=== PATIENT | female | born 1980 ===

== ENCOUNTER → 2017-05-23 | Outpatient (CLI) | payer OTHER ==
[~2017-05-23] MED LIST: CETI-176 PO; CHOL200025 PO; IPRA0.2S8 IH; MULT1TAB64 PO; NORG1TAB98 PO
--- NOTE | 2017-05-23 12:53 | RADIOLOGY IMAGING REPORT ---
FACILITY: [facility] - [place] PATIENT NAME: Rosalia Horn : 1980 MR: [id number] V: [id number] EXAM DATE: ORDERING PHYSICIAN: MAYRA WILKES TECHNOLOGIST: Location: [facility] [place] Patient: Rosalia Horn : 1980 Visit/Account:[id number] Date of Sevice: 05/23/2017 EXAMINATION: CT sinus without IV contrast HISTORY: Acute sinusitis. COMPARISON: CT sinuses from 05/28/2016. TECHNIQUE: Contiguous axial images were obtained through the paranasal sinuses without intravenous c ontrast administration. Coronal and sagittal reformatted images were obtained from the axial source d sal. One of the following dose optimization techniques was utilized in the performance of this exam: Autom ated exposure control; adjustment of the mA and/or kV according to the patient's size; or use of an i terative reconstruction technique. Specific details can be referenced in the facility's radiology C T exam operational policy. FINDINGS: Maxillary sinuses: Mild mucosal thickening in both maxillary sinuses with small air-fluid levels, lef t greater than right. The maxillary infundibula are clear. Frontal sinuses: The frontal sinuses are hypoplastic, particularly the right. No mucosal thickening. Ethmoid air cells: Minimal mucosal thickening in the bilateral ethmoid air cells. Sphenoid sinuses: The right sphenoid sinus is larger than the left, which is a normal variant. Mild m ucosal thickening in the left sphenoid sinus. Ostiomeatal units: Patent. Nasal septum/nasal cavity: Nasal septal deviation to the right causing mild narrowing of the right na syed cavity. Orbits: Negative. Visualized intracranial contents/soft tissues: Negative. TMJs: Negative. IMPRESSION: 1. Mild nonobstructive inflammation of the bilateral maxillary sinuses, ethmoid air cells and left sp henoid sinus. Air-fluid levels in the bilateral maxillary sinuses could indicate acute sinusitis. 2. Nasal septal deviation to the right with mild narrowing of the right nasal cavity. Report Dictated By: Betsy Graham MD at 05/23/2017 12:23 PM Report E-Signed By: Betsy Graham MD at 05/23/2017 12:49 PM WSN:[email or web address]
== END ==
LOC: CT 03:25
PROVIDERS: ATTEND Family Medicine
DX: J34.2 Deviated nasal septum (principal); J01.90 Acute sinusitis, unspecified
CPT/HCPCS: 70486

== ENCOUNTER → 2017-05-29 | Outpatient (CLI) | payer OTHER ==
[~2017-05-29] MED LIST changes: +METH4TAB66 PO
--- NOTE | 2017-05-29 13:35 | RADIOLOGY IMAGING REPORT ---
FAC[place] [facility] [place]IENT NAME: Rosalia Horn : 1980 MR: [id number] V: [id number] EXAM DATE: ORDERING PHYSICIAN: HAYLEY DICKSON TECHNOLOGIST: Location: [facility] Patient: Rosalia Horn : 1980 Visit/Account:[id number] Date of Sevice: 05/29/2017 Exam type: CHEST PA AND LAT History: Chronic cough, congestion Comparison: December 29, 2014. Findings: The lungs are free of acute effusions, infiltrates or edema. No evidence of a pneumothorax or pneumo mediastinum. The cardiac silhouette is normal in size. The trachea is in midline. IMPRESSION: 1. No acute cardiopulmonary process is seen Report Dictated By: Nohelia Rizo MD at 05/29/2017 1:31 PM Report E-Signed By: Nohelia Rizo MD at 05/29/2017 1:32 PM WSN:[id number]
== END ==
LOC: RAD 11:04
PROVIDERS: ATTEND Otolaryngology
DX: R05 Cough (principal)
CPT/HCPCS: 71046